=== PATIENT | female | born 1955 ===

== ENCOUNTER 2018-10-26 06:07 | Day surgery (SDC) | payer OTHER ==
[2018-10-25 11:41] VITALS: BMI 35.1
[2018-10-26] MEDS ORDERED: DEXAMETHASONE SOD PHOSPHATE 4 MG/1 ML VIAL ONE (07:29)
[2018-10-26] MEDS ORDERED: BUPIVACAINE HCL/PF 0.5% (5MG/ML) 10 ML VIAL ONE (07:29)
[2018-10-26] MEDS ORDERED: LIDOCAINE HCL 2% (20ML MULTI-DOSE VIAL) NR ONE (07:30)
[2018-10-26] MEDS ORDERED: MIDAZOLAM HCL 2 MG/2 ML SINGLE DOSE VIAL ONE ×4 (07:51→10:11)
[2018-10-26] MEDS ORDERED: PROPOFOL 20 ML ONE ×3 (07:52→11:44)
[2018-10-26] MEDS ORDERED: SUCCINYLCHOLINE CHLORIDE 200 MG/10 ML SYRINGE ONE (07:52)
[2018-10-26] MEDS ORDERED: CLINDAMYCIN 600 MG PREMIX BAG IVPB ONE (08:00)
[2018-10-26] MEDS ORDERED: LIDOCAINE HCL 2% (50ML VIAL) SQ ONE ×2 (08:07)
[2018-10-26] MEDS ORDERED: BUPIVACAINE HCL/PF 0.5% (5MG/ML) 10 ML VIAL IJ ONE ×5 (08:07→12:16)
[2018-10-26] MEDS ORDERED: DEXAMETHASONE SOD PHOSPHATE 4 MG/1 ML VIAL IVPUSH ONE ×3 (08:33→12:16)
[2018-10-26] MEDS ORDERED: LIDOCAINE HCL 2% (50ML VIAL) NR ONE ×2 (08:35→11:52)
[2018-10-26] MEDS ORDERED: ACETAMINOPHEN INJECTION 100 ML IVPB ONE (11:37)
[2018-10-26] MEDS ORDERED: BUPIVACAINE HCL/PF 0.5% (5MG/ML) 10 ML VIAL NR ONE (11:53)
[2018-10-26] MEDS ORDERED: ONDANSETRON 4 MG/2 ML VIAL IVPUSH PRN (12:40)
[2018-10-26] MEDS ORDERED: oxyCODONE HCL 5 MG TABLET PO PRN (12:40)
[2018-10-26] MEDS ORDERED: PROMETHAZINE HCL 25 MG/1 ML VIAL IVPUSH PRN (12:40)
[2018-10-26] MEDS ORDERED: LACTATED RINGERS SOLUTION 1,000 ML IV SCH (12:45)
[2018-10-26] MEDS ORDERED: oxyCODONE HCL 5 MG TABLET ONE (13:54)
[2018-10-26 14:23] VITALS: TEMP 97.6
[2018-10-26] MEDS ORDERED: PROMETHAZINE HCL 25 MG/1 ML VIAL ONE (15:17)
[2018-10-26 16:14] VITALS: BP 137/78; PULSE 79
--- NOTE | 2018-10-30 08:32 | OP ---
DATE OF OPERATION: 10/26/2018 PREOPERATIVE DIAGNOSES: 1. Right foot hallux abductovalgus deformity. 2. Right foot hallux interphalangeus deformity. 3. Right foot 2nd digit hammertoe deformity. 4. Right foot metatarsalgia. 5. 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 POSTOPERATIVE DIAGNOSES: 1. Right foot hallux abductovalgus deformity. 2. Right foot hallux interphalangeus deformity. 3. Right foot 2nd digit hammertoe deformity. 4. Right foot metatarsalgia. 5. 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 SURGEON: Nidia Damian DPM PATHOLOGY: Bone and soft tissue. ANESTHESIA: Local with MAC. PROCEDURE: 1. Left foot Jensen bunionectomy. 2. Right foot Reji osteotomy. 3. Right foot 2nd metatarsal Yuri osteotomy. 4. Right foot 2nd digit proximal interphalangeal joint arthroplasty with arthrodesis. 5. Layered closure. 6. Postoperative injection. HEMOSTASIS: Pneumatic ankle tourniquet set at 250 mmHg. ESTIMATED BLOOD LOSS: 5 mL. MATERIALS: Osteomed 2.0 x 12-mm headless screws x2, Osteomed 2.0 x 10-mm headed screw, 2-0 Vicryl, 4-0 Vicryl, 4-0 nylon, 5-0 nylon, and 0.062-inch K wires x2. INJECTABLES: Preoperatively, 30 mL of a 1:1 mixture of 1% lidocaine plain and 0.5% Marcaine plain. Postoperatively, 10 mL of an 8:2 mixture of 0.5% Marcaine plain and Decadron. COMPLICATIONS: None. CONDITION: Stable. DESCRIPTION: Patient was brought to the operating room and placed on the operating table in the supine position. A well-padded pneumatic ankle tourniquet was then placed on the patient's right ankle. Following IV sedation, local anesthesia was obtained utilizing 30 mL of a 1:1 mixture of 0.5% Marcaine plain and 1% lidocaine plain. The right foot was then scrubbed, prepped and draped in the usual aseptic manner. An Esmarch bandage was then utilized to exsanguinate the patient's right foot, and the tourniquet was then inflated. An approximately 4 cm linear longitudinal incision was made dorsomedially over the 1st metatarsophalangeal joint, medial and parallel to the extensor hallucis longus tendon. The incision was then deepened through the subcutaneous tissues to the capsule level utilizing sharp and blunt dissection. Care was taken to identify and retract all vital neuro and vascular structures. All bleeders were ligated and cauterized as necessary. The capsule was then visualized, and a linear capsulotomy was performed. The periosteal and capsular structures were then carefully dissected free and reflected medially and laterally, thus exposing the head of the 1st metatarsal. Utilizing a sagittal saw, the medial prominence of the 1st metatarsal head was resected and passed from the operative field. The hip was then externally rotated and the knee flexed so that the medial surface of the foot faced superior for better visualization of the Jensen procedure. A [id number] V-type osteotomy was then created utilizing the sagittal bone saw. The apex pointed distally with the dorsal arm slightly longer than the plantar arm to accommodate fixation. The capital fragment was then shifted laterally into an improved position, which was then impacted on the head of the metatarsal shaft. A 0.062-inch K wire was then driven across the osteotomy site for temporary fixation, and another K wire from the Osteomed set was then driven across the osteotomy site and placement was confirmed under fluoroscopy. Next, a 2.0 x 12 mm headless screw was then inserted across the osteotomy site using standard AO technique, providing excellent compression and fixation. Position of the screw was then confirmed under fluoroscopy and noted to be in excellent position. Another K wire from the Osteomed set was then driven across the osteotomy site and another 2.0 x 12 mm headless screw was also inserted across the osteotomy site using standard AO technique. All K wires were then removed and passed from the operative site. Position of the 2nd screw was then confirmed under fluoroscopy and was also noted to be in excellent position. All rough edges of bone were then resected and smoothed using power equipment, and the bunion deformity was noted to be vastly improved. Medial capsulorrhaphy was then performed to further enhance the correct. At this time, it was noted that the hallux was in a laterally deviated position, so it was elected to perform an Reji osteotomy for a more rectus appearance of the great toe. After further sharp and blunt dissection proximally, retracting all neurovascular components, the head of the proximal phalanx was exposed and the closing wedge osteotomy was performed, with the apex pointing laterally. Utilizing a sagittal saw, the wedge of bone was then removed and the osteotomy site compressed. A 0.062-inch K wire was then driven across the osteotomy site from a distal lateral to proximal medial direction using standard AO technique, which provided excellent fixation. The K wire was then bent and cut and a K-wire cap was secured at the distal end of the K wire. The wound was then flushed with copious amounts of sterile saline, and the periosteal and capsular structures were reapproximated using 2-0 Vicryl. Redundant capsular tissue was resected as needed and subcutaneous tissue was then closed with 4-0 Vicryl. Skin edges were then coapted using 4-0 nylon. Attention was then directed to the right foot 2nd digit, which was noted to be dorsally dislocated at the level of the metatarsophalangeal joint, with resultant hammertoe deformity at the proximal interphalangeal joint. Attention was then directed over the neck and head of the 2nd metatarsal of the right foot, where an approximately 3 cm linear longitudinal incision was placed directly over metatarsophalangeal joint of the right foot. The incision was then deepened through the subcutaneous tissues to the capsular level utilizing sharp and blunt dissection. All bleeders were ligated and cauterized as necessary. The capsule was visualized, and a linear capsulotomy was performed. The periosteal and capsular structures were then carefully dissected free and reflected medially and laterally, thus exposing the head of the 2nd metatarsal. The McGlamry elevator was then used to free up the 2nd metatarsophalangeal joint and release the joint contracture. At this point, a Yuri osteotomy was performed from dorsal distal to plantar proximal to the surgical neck of the 2nd metatarsal. The capital fragment was then transposed proximally and impacted over the shaft of the 2nd metatarsal utilizing a 0.062-inch K wire. Next, a 2.0 x 10 mm headed Osteomed screw was used to fixate the osteotomy site using standard AO technique. Fixation of the osteotomy with 2.0 screw was noted to be excellent and placement was confirmed under fluoroscopy. A bone rongeur was then used to remove any overhanging bone from the transposition of the capital fragment. The K wire was then removed and passed from the operative field. Range of motion of the 2nd metatarsophalangeal joint was found to be excellent. Attention was then directed to the level of the proximal interphalangeal joint of the 2nd digit of the right foot, where 2 horizontal semielliptical converging incisions were placed directly over the bony prominence at the level of the proximal interphalangeal joint. A transverse tenotomy, capsulotomy, and a medial and lateral collateral ligament release of the proximal interphalangeal joint of the right foot 2nd digit was performed and the head of the proximal phalanx of the 2nd digit was adequately exposed, as well as the base of the middle phalanx. The head of the proximal phalanx was then freed of its soft tissue attachments, and a sagittal saw was then used to cut a portion of the head of the proximal phalanx, which was then passed from the operative field. The sagittal saw was also used to remove articular cartilage from the base of the middle phalanx as well, which was then passed from the operative field. A 0.062-inch K wire was then driven to the base of the middle phalanx, exiting distally out the digit, which was then retrograded through the proximal phalanx. Confirmation of correct placement was checked under fluoroscopy and noted to be excellent. At this time, the K wire was bent and cut at the distal end and a K-wire cap was secured. All open surgical sites were copiously flushed with sterile saline and all capsular and periosteal tissues were reapproximated using 2-0 Vicryl, 4-0 Vicryl was used to approximate the subcutaneous tissues, and all skin edges were reapproximated using 4-0 and 5-0 nylon. Upon completion of the procedure, a total of 10 mL of an 8:2 mixture of 0.5% Marcaine and Decadron was infiltrated to all surgical sites. All incision sites were dressed with Xeroform, and Betadine-soaked Adaptic was applied to both K wire exit sites on the skin, and then covered with sterile compressive dressings consisting of 4 x 4's, Rick, and abdominal pads. Coban was then used to secure the dressing. The tourniquet was then deflated. At this time, an immediate hyperemia returned to all digits of the right foot. Patient tolerated the procedure well and was transported from the operating room to the recovery room with all vital signs stable and neurovascular status intact to the right foot. Following a period of postoperative monitoring, the patient was discharged and given instructions and prescriptions which were discussed prior to the surgery. The patient will follow up in private office in 1 week. SAMIR CHRISTIANSON/[id number]
--- NOTE | 2018-10-30 12:04 | PATH ---
Surgical Pathology Report Patient Name: NATI MORROW [facility]. Rec. #: [id number] /Age/Gender: 1955 (Age: 63) / F Account: [id number] Location: [facility] SURGICAL Taken: 10/26/2018 Received: 10/26/2018 Reported: 10/30/2018 Physicians: [employer] Damian DPM Specimen(s) Received FOOT, RIGHT, SOFT TISSUE AND METATARSAL BONE, BUNION Clinical History Hammer toes right foot Final Diagnosis FOOT, RIGHT, SOFT TISSUE AND METATARSAL BONE, BUNION, NOE BUNIONECTOMY: BONE WITH DEGENERATIVE CHANGES. SKIN AND SOFT TISSUE WITHOUT SIGNIFICANT PATHOLOGIC FINDINGS. Electronically Signed Yulia Marinelli M.D. Gross Description Received in formalin labeled "soft tissue and metatarsal bone right foot bunion," are 3 mejia-yellow portions of bone ranging from 0.8 x 0.5 x 0.2 cm to 1.5 x 1.0 x 0.3 cm. Also received within the same container is a 1.1 x 0.7 cm mejia, elliptical, unremarkable portion of skin. [employer] sections are submitted in one cassette, following decalcification. /10/29/2018 saudi10/29/2018
== END 2018-10-26 16:45 | disposition home or self-care (01) ==
LOC: JASU-SURG 06:07
PROVIDERS: ATTEND Podiatrist
PROC: 0QBN0ZZ Excision of Right Metatarsal, Open Approach (ICD-10-PCS; 2018-10-26)
PROC: 0QSN04Z Reposition Right Metatarsal with Internal Fixation Device, Open Approach (ICD-10-PCS; principal; 2018-10-26 07:30)
DX: M20.41 Other hammer toe(s) (acquired), right foot (principal); M21.611 Bunion of right foot; M77.41 Metatarsalgia, right foot; M20.11 Hallux valgus (acquired), right foot; M24.574 Contracture, right foot
CPT/HCPCS: 73630-TC-RT-FY; 88304-TC; 88311-TC; 94760; J0131